=== PATIENT | male | born 1965 | race Caucasian/White ===

== ENCOUNTER 2021-12-13 22:12 | Inpatient (IN) | payer OTHER ==
[~2021-12-13] VITALS: Ht 180.3 cm; Wt 93.9 kg
[2021-12-13 22:16] VITALS: BP_SYST 190
--- NOTE | 2021-12-13 22:23 | NUR ---
PT HERE FOR SOB WITH CHEST PAIN ON AND OFF SINCE YESTERDAY. PER PT HE DID COVID HIME TEST PRIOT TO ER ARRIVAL AND IT WAS NEGATIVE. HE ALSO SAID THAT HE'S BEEN HAVING BREATHING TREATMENT AT HOME WITH ALBUTEROL WITH NO RELIEF. PMh:HTN,ASTHMA,HEPC PT AAOX4 AT THIS TIME, SOB ON EXCERTION. ACCOMPANIED TO ROOM 6 AND AMBULATED WITH STEADY GAIT, PLACED ON CARDIAC MONITORS, DR. TRUONG AT BEDSIDE AT THIS TIME EXAMINING PATIENT
[2021-12-13] MEDS ORDERED: NITROGLYCERIN 0.4 MG TAB.SUBL SL ONE (22:45)
[2021-12-13] MEDS ORDERED: ASPIRIN 81 MG TAB.CHEW PO ONE (22:45)
[2021-12-13] MEDS ORDERED: ASPIRIN 81 MG TAB.CHEW ONE (22:45)
[2021-12-13 23:28] LABS: BASOPHILS # (AUTO) 0.1 K/uL (0.0-0.2); BASOPHILS % (AUTO) 0.9 % (0.0-2.0); EOSINOPHILS % (AUTO) 0.4 % (0.0-4.0); HEMATOCRIT 40.5 % (36-54); HEMOGLOBIN 14.1 g/dL (14.0-18.0); LYMPHOCYTES % (AUTO) 12.3 % (20.5-51.5); MEAN CORPUSCULAR HEMOGLOBIN 30 pg (27-31); MEAN CORPUSCULAR HGB CONC 35 % (32-36); MEAN CORPUSCULAR VOLUME 86 fL (79.0-98.0); MONOCYTES # (AUTO) 0.4 K/uL (0.0-1.0); MONOCYTES % (AUTO) 5.5 % (1.7-9.3); NEUTROPHILS # (AUTO) 6.3 K/uL (1.8-7.7); NEUTROPHILS % (AUTO) 80.9 % (40.0-70.0); PLATELET COUNT (AUTO) 174 K/uL (130-430); RED BLOOD CELL COUNT(AUTO) 4.71 MIL/uL (4.2-6.2); RED CELL DISTRIBUTION WIDTH 13.4 % (9.0-15.0); WHITE BLOOD COUNT (AUTO) 7.8 K/uL (4.8-10.8)
[2021-12-13 23:40] LABS: ANION GAP 9 (5-15); CHLORIDE 104 mmol/L (98-107); CREATININE 1.24 mg/dL (0.55-1.30); GLUCOSE 96 mg/dL (70-99); POTASSIUM 3.9 mmol/L (3.5-5.1); SODIUM SERUM 141 mmol/L (136-145); UREA NITROGEN, BLOOD 17 mg/dL (8-21)
[2021-12-13 23:49] LABS: ALANINE AMINOTRANSFERASE 23 U/L (12-78); ALBUMIN 4.2 g/dL (3.4-4.8); ASPARTATE AMINOTRANSFERASE 16 U/L (10-37); TOTAL BILIRUBIN 0.4 mg/dL (0.0-1.0)
[2021-12-13 23:51] LABS: GFR AFRICAN AMERICAN 77 mL/min (>90)
--- NOTE | 2021-12-13 23:54 | NUR ---
PT IS ALERT AND ORIENTED X 4. HE IS COPPERATIVE. DENIES PAIN. JUST A HEADCHE. IV WAS PLACE ON THE RIGHT ARM 22 GAUGE. VSS.
[2021-12-14] VITALS (9 sets, daily range): BP systolic 134–165
[2021-12-14] MEDS ORDERED: LORazepam 2 MG/ML VIAL IVP ONE (00:15)
[2021-12-14] MEDS ORDERED: LORazepam 1 MG TABLET PO PRN (00:30)
[2021-12-14] MEDS ORDERED: cloNIDine HCL 0.1 MG TABLET PO PRN (00:30)
[2021-12-14] MEDS ORDERED: BUPR100T13 PO (00:37)
[2021-12-14] MEDS ORDERED: ESCI10TA PO (00:37)
[2021-12-14] MEDS ORDERED: METH-797 PO (00:37)
[2021-12-14] MEDS ORDERED: LORA-259 PO (00:37)
[2021-12-14] MEDS ORDERED: GABA-331 PO (00:37)
--- NOTE | 2021-12-14 00:38 | NUR ---
Admit bed requested Patient will be admitted to care of . Admitted to TELEMETRY unit. Diagnosis CHEST PAIN Inpatient (Yes or No) Y Observation (Yes or No) Orientation concerns or request close to nursing station (Yes or No) N Covid Status PENDING On vent or bipap N Isolation requirements N Needs a sitter N From Home (Yes or if No enter name of facility) Y Requires Dialysis (Yes or No) Med Rec Completed (Yes of No) Y
--- NOTE | 2021-12-14 02:49 | NUR ---
CONSULTATION PAGED/CALLED Reason for Consultation: CHEST PAIN Person Who was Notified: APPLE Consulting Physician: DR. HARMON Hotbed Operator Specialty: DATA ARCHITECT Ordering Physician: DR. PEREZ
[2021-12-14] MEDS ORDERED: ACETAMINOPHEN 325 MG TABLET PO PRN (06:45)
[2021-12-14] MEDS ORDERED: LORazepam 1 MG TABLET PO SCH (09:00)
[2021-12-14] MEDS ORDERED: LISINOPRIL 10 MG TABLET (PRINIVIL) PO SCH (09:00)
[2021-12-14] MEDS ORDERED: METOPROLOL SUCCINATE 50 MG TAB.SR.24H (TOPROL XL) PO SCH (09:00)
[2021-12-14] MEDS ORDERED: ACETAMINOPHEN 325 MG TABLET PO ONE (09:30)
[2021-12-14] MEDS ORDERED: LISINOPRIL 10 MG TABLET (PRINIVIL) PO ONE (09:45)
[2021-12-14] MEDS ORDERED: LORazepam 1 MG TABLET PO ONE (09:45)
[2021-12-14] MEDS ORDERED: METOPROLOL SUCCINATE 50 MG TAB.SR.24H (TOPROL XL) PO ONE (09:45)
[2021-12-14] MEDS ORDERED: buPROPion HCL 100 MG TABLET PO ONE (09:45)
[2021-12-14] MEDS: METHADONE HCL 10 MG TABLET PO SCH ×4 (09:46→21:42)
[2021-12-14] MEDS: buPROPion HCL 100 MG TABLET PO SCH ×2 (14:46→21:41)
[2021-12-14] MEDS ORDERED: GABAPENTIN 300 MG CAPSULE PO SCH (21:00)
[2021-12-14] MEDS: LORazepam 1 MG TABLET PO SCH (21:42)
[2021-12-15] VITALS: BP_SYST 133
[2021-12-15] MEDS: METHADONE HCL 10 MG TABLET PO SCH ×4 (02:07→12:40)
--- NOTE | 2021-12-15 05:30 | NUR ---
Assumed care of this patient, stable and verbalizes no pain, he was given all his scheduled medications but he did not sleep the whole night, he was on the computer , this RN advised him to turn off the light and try go to sleep in vain, he verbalized headache this AM and tablet Tylenol 650mg given,vitals are within normal limits, he is not in distress,will continue to monitor him.
[2021-12-15 05:38] VITALS: BP_SYST 145
[2021-12-15 07:00] LABS: BASOPHILS % (AUTO) 0.5 % (0.0-2.0); EOSINOPHILS # (AUTO) 0.2 K/uL (0.0-0.4); EOSINOPHILS % (AUTO) 2.5 % (0.0-4.0); HEMOGLOBIN 13.3 g/dL (14.0-18.0); LYMPHOCYTES # (AUTO) 2.3 K/uL (1.0-5.5); LYMPHOCYTES % (AUTO) 25.1 % (20.5-51.5); MEAN CORPUSCULAR HEMOGLOBIN 30 pg (27-31); MEAN CORPUSCULAR HGB CONC 36 % (32-36); MEAN CORPUSCULAR VOLUME 84 fL (79.0-98.0); MONOCYTES # (AUTO) 0.5 K/uL (0.0-1.0); MONOCYTES % (AUTO) 5.1 % (1.7-9.3); NEUTROPHILS # (AUTO) 6.2 K/uL (1.8-7.7); NEUTROPHILS % (AUTO) 66.8 % (40.0-70.0); PLATELET COUNT (AUTO) 168 K/uL (130-430); RED BLOOD CELL COUNT(AUTO) 4.39 MIL/uL (4.2-6.2); RED CELL DISTRIBUTION WIDTH 13.2 % (9.0-15.0); WHITE BLOOD COUNT (AUTO) 9.3 K/uL (4.8-10.8)
--- NOTE | 2021-12-15 07:22 | NUR ---
Endorsed patient continuity of care to MADELEINE Steward
[2021-12-15 07:54] LABS: ALBUMIN 3.9 g/dL (3.4-4.8); CREATININE 0.98 mg/dL (0.55-1.30); FREE T4 (FREE THYROXINE) 1.1 ng/dl (0.8-1.5); POTASSIUM 3.7 mmol/L (3.5-5.1); TOTAL BILIRUBIN 0.2 mg/dL (0.0-1.0)
[2021-12-15 08:00] VITALS: BP_SYST 139
[2021-12-15] MEDS ORDERED: METOPROLOL SUCCINATE 50 MG TAB.SR.24H (TOPROL XL) PO SCH (09:00)
[2021-12-15] MEDS ORDERED: CITALOPRAM HYDROBROMIDE 20 MG TABLET PO SCH (09:00)
[2021-12-15] MEDS ORDERED: LISINOPRIL 10 MG TABLET (PRINIVIL) PO SCH ×2 (09:00)
--- NOTE | 2021-12-15 09:00 | NUR ---
Mr Gomez has been assessed as indicated. He denies pain. He is slightly restless this morning. But he has been found to be both pleasant and cooperative. He is presently resting quietly with no s/s of distress or discomfort. He does anticipate DC today.
[2021-12-15] MEDS: buPROPion HCL 100 MG TABLET PO SCH (09:14)
[2021-12-15] MEDS: LORazepam 1 MG TABLET PO SCH (09:16)
[2021-12-15 10:34] VITALS: BP_SYST 139
[2021-12-15 11:15] VITALS: BP_SYST 123
--- NOTE | 2021-12-15 12:29 | NUR ---
Mr Gomez is being DC to home. IV acces has been removed. heart monitor has been removed. He has the same level of anxiety with no noted increases. He will be DC with his . DC instructions have been reviewed. He expressed that he understood the DC instructions and has signed a document to indicate as much. He will make his own appointments with his PCP. 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 He is presently awaiting the arrival of his Bibiana so that he may be taken home via private vehicle
--- NOTE | 2021-12-15 13:26 | NUR ---
mr Gomez is leavin the building now. He decided to ambulate to the front dooe unassited by staff. Nre Rx for lisinopril and lopressor have been called to the pharmacist Ady at [facility] in [place]. At the time of DC Jonathan had no s/s of distress or discomfort. He was with his but was in a bit of a hrry to leave.
== END 2021-12-15 13:30 | disposition home or self-care (01) | DRG 313 ==
LOC: SED 22:12 → STU 12-14 00:27
PROVIDERS: ADMIT Internal Medicine; ATTEND Internal Medicine
DX: R07.89 Other chest pain (principal); I10 Essential (primary) hypertension; F41.9 Anxiety disorder, unspecified; Z20.822 Contact with and (suspected) exposure to COVID-19; F32.A Depression, unspecified; G89.4 Chronic pain syndrome; M54.9 Dorsalgia, unspecified; Z79.899 Other long term (current) drug therapy
CPT/HCPCS: 36415; 71045; 80053; 80061; 83735; 83880; 84439; 84443; 84484; 85025; 93005; 93306; 96374; 99285; G0378; G0482; J2060

== ENCOUNTER 2022-04-27 12:47 | Emergency (ER) | payer OTHER, MEDICAID ==
[~2022-04-27] VITALS: Ht 180.3 cm; Wt 113.4 kg
[~2022-04-27 12:47] MED LIST: BUPR100T13 PO; ESCI10TA PO; GABA-331 PO; LORA-259 PO; METH-797 PO
--- NOTE | 2022-04-27 12:59 | NUR ---
Patient to ER bed 5 to gown for evaluation. Side rails up. Report given to .
[2022-04-27 13:03] VITALS: BP_SYST 153
--- NOTE | 2022-04-27 13:14 | NUR ---
ED BY BEDSIDE FOR PT
--- NOTE | 2022-04-27 13:14 | NUR ---
1307 PT VS 84HR 96%SPO2 RR10 153/96MMHG PT IS RESTING IN GURNEY WITH FAMILY BY BEDSIDE. PT COMPLAINS OF BACK PAIN, DID NOT HAVE METADONE SINCE 04/25/22 AND HAS BACK PAIN 11/01. PT ALSO STATES HE IS HAVING VISUAL/AUDITORY HALLUCINATIONS STARTED 04/25/22 AT NIGHT. DENIES CHEST PAIN/SOB. PT HAS CHRONIC BACK PAIN (10 YEARS)WITH CANE BY BEDSIDE
[2022-04-27] MEDS ORDERED: BUPRENORPHINE HCL/NALOXONE HCL 2-0.5 MG 1 EACH TAB.SUBL SL ONE (13:30)
[2022-04-27 13:44] LABS: BASOPHILS % (AUTO) 0.7 % (0.0-2.0); EOSINOPHILS # (AUTO) 0.1 K/uL (0.0-0.4); EOSINOPHILS % (AUTO) 1.6 % (0.0-4.0); HEMATOCRIT 41.7 % (36-54); LYMPHOCYTES # (AUTO) 1.4 K/uL (1.0-5.5); LYMPHOCYTES % (AUTO) 20.9 % (20.5-51.5); MEAN CORPUSCULAR HEMOGLOBIN 29 pg (27-31); MEAN CORPUSCULAR HGB CONC 34 % (32-36); MEAN CORPUSCULAR VOLUME 88 fL (79.0-98.0); MONOCYTES # (AUTO) 0.4 K/uL (0.0-1.0); MONOCYTES % (AUTO) 5.4 % (1.7-9.3); NEUTROPHILS # (AUTO) 4.8 K/uL (1.8-7.7); NEUTROPHILS % (AUTO) 71.4 % (40.0-70.0); PLATELET COUNT (AUTO) 154 K/uL (130-430); RED BLOOD CELL COUNT(AUTO) 4.76 MIL/uL (4.2-6.2); RED CELL DISTRIBUTION WIDTH 14.1 % (9.0-15.0); WHITE BLOOD COUNT (AUTO) 6.7 K/uL (4.8-10.8)
--- NOTE | 2022-04-27 13:47 | NUR ---
Pt medicated as ordered, well tolerated
--- NOTE | 2022-04-27 13:54 | NUR ---
Pt c/o headache after suboxone administration, VSS
[2022-04-27 13:57] LABS: ANION GAP 10 (5-15); CALCIUM 9.3 mg/dL (8.4-11.0); CHLORIDE 105 mmol/L (98-107); CREATININE 0.99 mg/dL (0.55-1.30); GLUCOSE 105 mg/dL (70-99); UREA NITROGEN, BLOOD 9 mg/dL (8-21)
[2022-04-27 13:58] LABS: GFR AFRICAN AMERICAN 100 mL/min (>90)
[2022-04-27 14:01] LABS: ALANINE AMINOTRANSFERASE 19 U/L (12-78); ALBUMIN 4.4 g/dL (3.4-4.8); ASPARTATE AMINOTRANSFERASE 17 U/L (10-37); TOTAL BILIRUBIN 0.4 mg/dL (0.0-1.0)
[2022-04-27 14:02] LABS: ALCOHOL, BLOOD < 3 mg/dL (<10)
[2022-04-27] MEDS ORDERED: MORPHINE 4 MG INJ. 4 MG/ML VIAL IVP ONE (14:45)
[2022-04-27] MEDS ORDERED: MORPHINE SULFATE 10 MG/ML VIAL IM ONE (15:00)
[2022-04-27] MEDS ORDERED: LORA-259 PO (15:36)
[2022-04-27 16:06] VITALS: BP_SYST 156
--- NOTE | 2022-04-27 16:07 | NUR ---
Patient given written and verbal discharge instructions and verbalizes understanding. ER MD discussed with patient the results and treatment provided. Patient in stable condition. ID arm band removed. IV catheter removed intact and dressing applied, no active bleeding. No Rx given. Patient educated on pain management and to follow up with PMD. Pain Scale 2/10 . Opportunity for questions provided and answered. Medication side effect fact sheet provided.
== END 2022-04-27 16:06 | disposition home or self-care (01) ==
LOC: SED 12:47
DX: F11.23 Opioid dependence with withdrawal (principal); M54.50 Low back pain, unspecified; R44.3 Hallucinations, unspecified; J45.909 Unspecified asthma, uncomplicated; I10 Essential (primary) hypertension; Z79.899 Other long term (current) drug therapy
CPT/HCPCS: 99283; 80053; 85025; 36415; 96372; G0482; J2270; 99284

== ENCOUNTER 2023-04-26 22:10 | Emergency (ER) | payer OTHER, MEDICAID | END 2023-04-26 23:30 | disposition left against medical advice (07) | LOC: SED 22:10 | DX: I10 Essential (primary) hypertension (principal); Z53.21 Procedure and treatment not carried out due to patient leaving prior to being seen by health care provider ==